=== PATIENT | male | born 1950 | race Caucasian/White ===

== ENCOUNTER 2020-01-16 12:53 | Day surgery (SDC) | payer MEDICARE, BC ==
[2020-01-16] MEDS ORDERED: Lidocaine 1% 30 ML SDV ONE ×2 (13:35→13:47)
== END 2020-01-16 14:45 | disposition home or self-care (01) ==
LOC: DL.SDS 12:53
PROVIDERS: ATTEND Surgery
DX: L02.31 Cutaneous abscess of buttock (principal); J45.909 Unspecified asthma, uncomplicated; F31.9 Bipolar disorder, unspecified; E78.00 Pure hypercholesterolemia, unspecified; Z87.891 Personal history of nicotine dependence; Z79.82 Long term (current) use of aspirin; Z79.899 Other long term (current) drug therapy
CPT/HCPCS: J2001